=== PATIENT | female | born 1965 | race Caucasian/White ===

== ENCOUNTER → 2025-10-13 | Outpatient (CLI) | payer BC, SELFPAY ==
--- NOTE | 2025-10-13 10:01 | NM_ITS ---
PROCEDURE: THYROID UPTAKE SINGLE OR MULT 10/13/2025 REASON FOR EXAM: DETERMINE IF NODULES ARE HOT TECHNIQUE: Procedure Code: [id number] Modality: NM Procedure: THYROID UPTAKE SINGLE OR MULT Thyroid uptake calculated at 4 and 24 hours after 285 microcuries I-131 orally as a capsule. COMPARISON: None. FINDINGS: Thyroid Uptake: 3.85 Hours: 5.1 % (normal range 5 to15%) 23.67 Hours: 12.2 % (normal range 10 to 35%) Thyroid Scan: Asymmetry of the thyroid lobes is seen, with marked paucity of the right compared with the left. No focal process is additionally seen. NM/Thyroid Uptake Single or Mult IMPRESSION: 1. Thyroid uptake values are in the lower range of normal. 2. Marked thyroid lobe asymmetry, with paucity of uptake seen in the right comp ared with the left. Reading Location: [place] [id number]
[2025-10-13 11:41] LABS: Free T3 3.4 pg/mL (2.18-3.98)
== END | disposition home or self-care (01) ==
PROVIDERS: PCP Nurse Practitioner Family; Referring Provider Internal Medicine Endocrinology, Diabetes & Metabolism; Visit Provider Internal Medicine Endocrinology, Diabetes & Metabolism
DX: E05.20 Thyrotoxicosis with toxic multinodular goiter without thyrotoxic crisis or storm (principal)
CPT/HCPCS: 36415; 78012; 84439; 84443; 84481; A9516